=== PATIENT | female | born 2000 | race African-American/Black ===

== ENCOUNTER 2022-06-22 10:10 | Emergency (ER) | payer OTHER ==
[~2022-06-22] VITALS: Ht 160 cm; Wt 45.5 kg
[~2022-06-22 10:10] MED LIST: LORA5SOL; PEDIACARE
[2022-06-22 10:13] VITALS: BP 98/66
[2022-06-22] MEDS ORDERED: ALBU8HFA IH (10:18)
[2022-06-22 10:27] LABS: COVID AG,FIA SOURCE NASOPHARYNGEAL
[2022-06-22 11:14] LABS: INFLUENZA TYPE A NEGATIVE FOR TYPE A (NEGATIVE); INFLUENZA TYPE B NEGATIVE FOR TYPE B (NEGATIVE)
[2022-06-22] MEDS ORDERED: ACETAMINOPHEN 500 MG TABLET PO ONE (13:00)
[2022-06-22] MEDS ORDERED: BENZ-70 PO (14:14)
== END 2022-06-22 14:33 | disposition home or self-care (01) ==
LOC: EMS 10:16
DX: J06.9 Acute upper respiratory infection, unspecified (principal); R05.9 Cough, unspecified; Z20.822 Contact with and (suspected) exposure to COVID-19
CPT/HCPCS: 71046; 87804; 99284